=== PATIENT | female | born 1990 | race Caucasian/White ===

== ENCOUNTER 2021-07-19 10:47 | Emergency (ER) | payer SELFPAY ==
[~2021-07-19] VITALS: Ht 162.6 cm; Wt 81.4 kg
[2021-07-19] MEDS ORDERED: NORCO 325 MG-51 TA1 PO (12:49)
[2021-07-19] MEDS ORDERED: CEPHALEXIN500 M1 PO (12:49)
[2021-07-19 13:28] VITALS: BP 122/77
== END 2021-07-19 13:42 | disposition home or self-care (01) ==
LOC: ED 10:47
DX: S61.210A Laceration without foreign body of right index finger without damage to nail, initial encounter (principal); S61.001A Unspecified open wound of right thumb without damage to nail, initial encounter; F17.210 Nicotine dependence, cigarettes, uncomplicated; W28.XXXA Contact with powered lawn mower, initial encounter; Y92.59 Other trade areas as the place of occurrence of the external cause; Y99.0 Civilian activity done for income or pay
CPT/HCPCS: 90715; J0690; J1885; J3010